=== PATIENT | female | born 1970 | race Caucasian/White ===

== ENCOUNTER → 2017-05-15 | Outpatient (CLI) | payer BC ==
[~2017-05-15] MED LIST: ALLEGRA D 12 HO1 TER PO; ALLEGRA-D 24HOU1 T24 PO; AMITRIPTYLINE H10 M1 PO; FLEXERIL 1010 MG/TAB PO; IBU600 MG PO; MAXALT MLT10 MG/TAB PO; NORCO 325 MG-101 TAB PO; PREDNISONE20 MG PO; XANAX 1MG1 MG PO
== END ==
LOC: MC.RAD 14:00
DX: N64.4 Mastodynia (principal)

== ENCOUNTER → 2018-01-06 | Outpatient (CLI) | payer BC | LOC: MHCPAIN 15:03 | DX: G89.29 Other chronic pain (principal); M79.2 Neuralgia and neuritis, unspecified; M79.601 Pain in right arm | CPT/HCPCS: G0463 ==

== ENCOUNTER → 2018-02-10 | Outpatient (CLI) | payer BC | LOC: MHCPAIN 13:29 | DX: G89.29 Other chronic pain (principal); M79.2 Neuralgia and neuritis, unspecified; Z87.891 Personal history of nicotine dependence | CPT/HCPCS: G0463 ==

== ENCOUNTER → 2018-04-13 | Outpatient (CLI) | payer BC | LOC: MHCPAIN 15:38 | DX: G89.29 Other chronic pain (principal); M79.2 Neuralgia and neuritis, unspecified; M79.1 Myalgia | CPT/HCPCS: G0463 ==

== ENCOUNTER → 2018-06-03 | Outpatient (CLI) | payer BC | LOC: COL.RAD 10:00 | DX: R59.0 Localized enlarged lymph nodes (principal); Z90.710 Acquired absence of both cervix and uterus | CPT/HCPCS: Q9967 ==

== ENCOUNTER → 2018-10-07 | Outpatient (CLI) | payer BC | LOC: MHCPAIN 15:35 | DX: G89.29 Other chronic pain (principal); M50.90 Cervical disc disorder, unspecified, unspecified cervical region; M54.81 Occipital neuralgia; R51 Headache; M79.2 Neuralgia and neuritis, unspecified | CPT/HCPCS: G0463 ==

== ENCOUNTER 2018-11-20 05:49 | Emergency (ER) | payer BC ==
[~2018-11-20] VITALS: Ht 175.3 cm; Wt 63.6 kg
[2018-11-20 05:54] VITALS: BP 122/77; TEMP 97.8
[2018-11-20 07:42] VITALS: PULSE 90
== END 2018-11-20 07:42 | disposition home or self-care (01) ==
LOC: COL.ER 05:49
DX: R51 Headache (principal); Z86.69 Personal history of other diseases of the nervous system and sense organs; E03.9 Hypothyroidism, unspecified; Z88.0 Allergy status to penicillin; Z88.2 Allergy status to sulfonamides; Z88.6 Allergy status to analgesic agent
CPT/HCPCS: J0780; J1200; J1885; J7030

== ENCOUNTER → 2018-12-02 | Outpatient (CLI) | payer BC | LOC: COL.RAD 13:12 | DX: R59.0 Localized enlarged lymph nodes (principal); Z90.89 Acquired absence of other organs; Z90.710 Acquired absence of both cervix and uterus | CPT/HCPCS: Q9967 ==

== ENCOUNTER → 2019-01-20 | Outpatient (CLI) | payer BC | LOC: MHCPAIN 15:26 | DX: G89.29 Other chronic pain (principal); M54.12 Radiculopathy, cervical region; M47.812 Spondylosis without myelopathy or radiculopathy, cervical region | CPT/HCPCS: G0463 ==

== ENCOUNTER → 2019-04-21 | Outpatient (CLI) | payer BC | LOC: MHCPAIN 15:49 | DX: G89.29 Other chronic pain (principal); M47.812 Spondylosis without myelopathy or radiculopathy, cervical region; R51 Headache | CPT/HCPCS: G0463 ==

== ENCOUNTER → 2019-07-28 | Outpatient (CLI) | payer BC | LOC: MHCPAIN 15:00 | DX: G89.29 Other chronic pain (principal); M54.81 Occipital neuralgia; R51 Headache; M47.812 Spondylosis without myelopathy or radiculopathy, cervical region | CPT/HCPCS: G0463 ==

== ENCOUNTER → 2019-10-19 | Outpatient (CLI) | payer BC | LOC: MHCPAIN 15:29 | DX: M47.812 Spondylosis without myelopathy or radiculopathy, cervical region (principal); R51 Headache | CPT/HCPCS: G0463 ==

== ENCOUNTER → 2020-01-18 | Outpatient (CLI) | payer BC | LOC: MHCPAIN 15:29 | DX: M54.2 Cervicalgia (principal); G89.29 Other chronic pain | CPT/HCPCS: G0463 ==

== ENCOUNTER → 2020-05-17 | Outpatient (CLI) | payer BC | LOC: MHCPAIN 14:52 | DX: M47.812 Spondylosis without myelopathy or radiculopathy, cervical region (principal); M54.2 Cervicalgia; R51 Headache; G89.29 Other chronic pain | CPT/HCPCS: G0463 ==

== ENCOUNTER → 2020-08-16 | Outpatient (CLI) | payer BC | LOC: MHCPAIN 15:14 | DX: M54.81 Occipital neuralgia (principal); M25.511 Pain in right shoulder; M25.531 Pain in right wrist; M54.2 Cervicalgia | CPT/HCPCS: G0463 ==

== ENCOUNTER → 2020-11-15 | Outpatient (CLI) | payer BC | LOC: MHCPAIN 13:53 | DX: M47.812 Spondylosis without myelopathy or radiculopathy, cervical region (principal); M54.2 Cervicalgia; M54.81 Occipital neuralgia; G89.29 Other chronic pain | CPT/HCPCS: G0463 ==

== ENCOUNTER → 2021-02-13 | Outpatient (CLI) | payer BC | LOC: MHCPAIN 15:29 | DX: M79.18 Myalgia, other site (principal); M79.2 Neuralgia and neuritis, unspecified; G89.29 Other chronic pain | CPT/HCPCS: G0463 ==

== ENCOUNTER → 2021-05-22 | Outpatient (CLI) | payer BC | LOC: MHCPAIN 15:18 | DX: M79.18 Myalgia, other site (principal); M25.512 Pain in left shoulder; M79.2 Neuralgia and neuritis, unspecified | CPT/HCPCS: G0463 ==

== ENCOUNTER → 2021-08-22 | Outpatient (CLI) | payer BC | LOC: MHCPAIN 15:19 | DX: M54.2 Cervicalgia (principal); M79.2 Neuralgia and neuritis, unspecified; M25.511 Pain in right shoulder | CPT/HCPCS: G0463 ==

== ENCOUNTER → 2021-12-12 | Outpatient (CLI) | payer BC | LOC: MHCPAIN 15:14 | DX: M47.812 Spondylosis without myelopathy or radiculopathy, cervical region (principal); M54.81 Occipital neuralgia; M54.2 Cervicalgia | CPT/HCPCS: G0463 ==

== ENCOUNTER → 2022-02-27 | Outpatient (CLI) | payer BC | LOC: MHCPAIN 15:04 | DX: M47.812 Spondylosis without myelopathy or radiculopathy, cervical region (principal); M54.81 Occipital neuralgia; M54.2 Cervicalgia | CPT/HCPCS: G0463 ==

== ENCOUNTER → 2022-05-28 | Outpatient (CLI) | payer BC | LOC: MHCPAIN 15:16 | DX: M54.12 Radiculopathy, cervical region (principal); M54.81 Occipital neuralgia; M47.812 Spondylosis without myelopathy or radiculopathy, cervical region; G89.0 Central pain syndrome | CPT/HCPCS: G0463 ==

== ENCOUNTER → 2022-09-10 | Outpatient (CLI) | payer BC | LOC: MHCPAIN 15:18 | DX: M79.2 Neuralgia and neuritis, unspecified (principal); M47.812 Spondylosis without myelopathy or radiculopathy, cervical region; M54.2 Cervicalgia | CPT/HCPCS: G0463 ==

== ENCOUNTER → 2023-03-12 | Outpatient (CLI) | payer BC | LOC: MHCPAIN 15:52 | DX: M47.812 Spondylosis without myelopathy or radiculopathy, cervical region (principal); M79.2 Neuralgia and neuritis, unspecified; G89.29 Other chronic pain | CPT/HCPCS: G0463 ==

== ENCOUNTER → 2023-11-14 | Outpatient (CLI) | payer BC ==
[~2023-11-14] MED LIST changes: +IPRATROPIUM BROM3 M1 IH; +PREDNISONE50 MG PO; +VENTOLIN0.09 MG IH
[2023-11-14 15:40] LABS: BAND 2 % (0-10); EOSINOPHIL 2 % (0-4); NEUTROPHILS 39 % (42.0-75.2)
[2023-11-14 15:41] LABS: LYMPHOCYTE 55 % (20.0-51.0); PLATELET ESTIMATE NORMAL (NORMAL)
[2023-11-14 15:43] LABS: STOMATOCYTE 1+
== END ==
LOC: COL.RAD 13:47
PROVIDERS: Internal Medicine Rheumatology
DX: E06.3 Autoimmune thyroiditis (principal); L30.9 Dermatitis, unspecified; M25.50 Pain in unspecified joint; M79.7 Fibromyalgia; G90.50 Complex regional pain syndrome I, unspecified

== ENCOUNTER → 2023-12-10 | Outpatient (CLI) | payer BC | LOC: MHCPAIN 15:01 | DX: M79.2 Neuralgia and neuritis, unspecified (principal); G90.511 Complex regional pain syndrome I of right upper limb | CPT/HCPCS: G0463 ==

== ENCOUNTER → 2024-01-16 | Outpatient (CLI) | payer BC ==
[2024-01-16] VITALS (8 sets, daily range): BP systolic 92–118; BP diastolic 62–87; PULSE 74–87; TEMP 97.9
[~2024-01-16] VITALS: Ht 175.3 cm; Wt 77.5 kg
[~2024-01-16] MED LIST changes: +CALCIUM 600MG+D1 TAB PO; +ESTRACE 1MG1 MG/TAB PO; +LEVOXYL0.1 MG PO; +Midazolam 2 MG/2 ML VIAL IV SCH; +NURTEC ODT75 MG PO; +SINGULAIR 110 MG/TAB PO; +TOPAMAX50 MG PO; +VALIUM 10MG10 MG/TAB PO; +ZANAFLEX CAPSULE2 MG PO; +fentaNYL 50 MCG/ML 2 ML VIAL IV SCH
== END ==
LOC: COL.RAD 08:50
DX: R59.9 Enlarged lymph nodes, unspecified (principal)
CPT/HCPCS: J2250; J3010